=== PATIENT | male | born 1945 | race Caucasian/White ===

== ENCOUNTER → 2023-05-27 08:47 | Outpatient (REF) | payer MEDICARE, SELFPAY | LOC: RAD 08:47 | PROVIDERS: ATTENDING PHYSICIAN Physician Assistant; FAMILY PHYSICIAN Internal Medicine | DX: I72.3 Aneurysm of iliac artery (principal); I77.811 Abdominal aortic ectasia | CPT/HCPCS: 76770 ==

== ENCOUNTER → 2023-11-24 09:56 | Outpatient (REF) | payer MEDICARE, SELFPAY | LOC: RAD 09:56 | PROVIDERS: ATTENDING PHYSICIAN Surgery Vascular Surgery; FAMILY PHYSICIAN Internal Medicine | DX: I72.3 Aneurysm of iliac artery (principal); I73.9 Peripheral vascular disease, unspecified | CPT/HCPCS: 93922; 93925; 93978 ==

== ENCOUNTER → 2024-02-16 06:45 | Outpatient (REF) | payer MEDICARE, SELFPAY ==
[2024-02-16] MEDS: LEXISCAN 0.4 MG IV (09:15)
== END ==
LOC: RCS 06:45
PROVIDERS: ATTENDING PHYSICIAN Internal Medicine Cardiovascular Disease; FAMILY PHYSICIAN Internal Medicine
DX: I25.10 Atherosclerotic heart disease of native coronary artery without angina pectoris (principal)
CPT/HCPCS: 78452; 93017; A9500; J2785

== ENCOUNTER → 2024-03-31 10:58 | Outpatient (REF) | payer MEDICARE, SELFPAY ==
[2024-03-31 12:39] LABS: % Basophils 1.3 % (0-2); % Eosinophils 0.7 % (0-6); % Immature Granulocytes 0.4 % (0-0.5); % Lymphocytes 20.5 % (20.5-51.1); % Monocytes 8.1 % (1.7-9.3); Absolute Basophils 0.1 10^3/uL (0-0.2); Absolute Eosinophils 0.1 10^3/uL (0-0.7); Absolute Lymphocytes 1.5 10^3/uL (1.2-3.4); Absolute Monocytes 0.6 10^3/uL (0.1-0.6); Absolute Neutrophils 4.9 10^3/uL (1.4-6.5); Hematocrit 43.5 % (39.0-52.0); Hemoglobin 14.4 g/dL (13.0-18.0); Mean Corp Hgb Conc. 33.1 g/dL (33.0-37.0); Mean Corpuscular Hgb 29.8 pg (27.0-31.0); Mean Corpuscular Volume 90.1 fL (80.0-94.0); Nucleated Red Blood Cells % 0 % (-); Platelet Count 338 10^3/uL (130-400); Red Blood Cell Count 4.83 10^6/uL (4.70-6.10); Red Cell Dist. Width 12.6 % (11.5-14.5); White Blood Cell Count 7.2 10^3/uL (4.8-10.8)
[2024-03-31 13:36] LABS: ALT (SGPT) 27 U/L (0-50); AST (SGOT) 31 U/L (17-59); Albumin 4.5 g/dl (3.5-5.0); Alkaline Phosphatase 95 U/L (38-126); Blood Urea Nitrogen 14 mg/dl (9-20); Calcium 9.3 mg/dl (8.4-10.2); Carbon Dioxide 27 mmol/L (22-30); Chloride 102 mmol/L (98-107); Glucose 171 mg/dl (70-99); HDL Cholesterol 55 mg/dl; LDL Cholesterol, Calculated 42 mg/dl; Potassium 4.9 mmol/L (3.5-5.1); Sodium 140 mmol/L (135-145); Total Bilirubin 0.9 mg/dl (0.2-1.3); Total Cholesterol 123 mg/dl (50-199); Total Protein 7.4 g/dl (6.3-8.2); Triglyceride 134 mg/dl (10-149); Very Low Density Lipoprotein 26 mg/dl (0-30); eGFR > 60.00
[2024-03-31 14:03] LABS: PSA, Total - Screen 2.19 ng/ml (0.0-4.0)
[2024-03-31 14:23] LABS: Glycohemoglobin (HgbA1c) 7.9 % (4.0-5.6)
== END ==
LOC: REG 10:58
PROVIDERS: ATTENDING PHYSICIAN Internal Medicine Cardiovascular Disease; PRIMARYCARE PHYSICIAN Internal Medicine
DX: I25.10 Atherosclerotic heart disease of native coronary artery without angina pectoris (principal); E11.8 Type 2 diabetes mellitus with unspecified complications; N40.1 Benign prostatic hyperplasia with lower urinary tract symptoms; R35.0 Frequency of micturition; Z12.5 Encounter for screening for malignant neoplasm of prostate
CPT/HCPCS: 36415; 80053; 80061; 83036; 85025; G0103

== ENCOUNTER 2024-05-24 21:27 | Inpatient (IN) | payer MEDICARE, SELFPAY ==
[2024-05-24 15:34] VITALS: BP 182/84
--- NOTE | 2024-05-24 15:41 | ED.GENMED ---
ED Provider Triage
<Brian Lynch PA-C - Last Filed: 05/24/24 15:42>
-
Patient seen by provider in Triage?: Seen in Triage
Attestation: A medical screening examination has been initiated by a qualified medical provider. Based on the assessment performed at this time, it has been determined that an emergent medical condition may exist and the patient has been informed
that further medical evaluation and possible additional diagnostic testing may be needed.
HPI: 71-year-old male presents to the emergency department after a syncopal versus weakness episode. He states he was in his kitchen when he suddenly felt his legs get weak and he fell to the ground. He is not clear whether he lost consciousness.
Denies a head strike. Currently feels like his legs are weak and is having a hard time walking. Denies any upper extremity weakness.
GENERAL: Alert , in no apparent distress
EYE: No visual abnormalities.
NECK: Trachea midline
ENT: No visible abnormalities.
LUNGS: No acute respiratory distress
NEUROLOGICAL: Alert and oriented
SKIN: Skin intact. No visible changes.
MUSCULOSKELETAL: Moving extremities normally
PSYCH: Normal and appropriate interaction.
This is a medical evaluation conducted in person to initiate diagnostic evaluation and provide initial therapeutics. Please see further documentation by the treating clinician.
History of Present Illness
<Brian Lynch PA-C - Last Filed: 05/24/24 15:42>
General
Chief Complaint: Fainting/Passed Out
Time Seen by Provider: 05/24/24 18:00
<Nirav Landin DO - Last Filed: 05/24/24 19:47>
General
Source: patient
Exam Limitations: none
History of Present Illness
History of Present Illness:
See MDM
Past History
<Brian Lynch PA-C - Last Filed: 05/24/24 15:42>
Past History
ED Past Medical History: HTN, Hypercholesterolemia, NIDDM and NC
ED Past Surgical History: Appendectomy and Orthopedic
Social History
Tobacco: Non-smoker
Alcohol: Occasional
Personal:
Employment: Retired
Family History
Family History: Diabetes; Negative Early CAD
Phy Exam
<Nirav Landin, - Last Filed: 05/24/24 19:47>
Physical Exam
Physical Exam:
See MDM
Course
<Brian Lynch PA-C - Last Filed: 05/24/24 15:42>
Orders/Labs/Results
Orders:
Orders
05/24/24 15:26
EKG [Electrocardiogram (*1)] Urgent
Reason for Study: Syncope
EKG- Treatment ONCE
05/24/24 15:41
Complete Blood Count/With Diff Urgent
Comprehensive Metabolic Panel Urgent
05/24/24 16:35
COVID-19 Antigen Urgent
Source: Nasal Swab
INF RAPID [Influenza A+B Rapid Molecular] Urgent
KIRSTEN Source: Nasal Swab
Specimen Description:
05/24/24 18:08
0.9% Sodium Chloride 1000 ml [Nss] 1,000 ml IV BOLUS
Acetaminophen [Tylenol] 1,000 mg PO NOW STA
05/24/24 18:09
CT Head W/o Iv Contrast Urgent
Comment:
Reason For Exam: fall, head injury
05/24/24 18:11
Oseltamivir Phosphate [Tamiflu] 75 mg PO NOW STA
Abnormal Lab Results
05/24/24
15:41
RBC 4.41 L 10^6/uL
(4.70-6.10)
Hct 38.9 L %
(39.0-52.0)
MPV 11.0 H fL
(7.4-10.4)
Absolute Neuts (auto) 7.4 H 10^3/uL
(1.4-6.5)
Absolute Lymphs (auto) 0.5 L 10^3/uL
(1.2-3.4)
Neutrophils % 87.5 H %
(42.2-75.2)
Lymphocytes % 5.3 L %
(20.5-51.1)
Glucose 185 H mg/dl
(70-99)
05/24/24 15:41
05/24/24 15:41
Vital Signs
Initial and Last Documented VS:
Initial Vital Signs
Temp Pulse Resp BP Pulse Ox
98.2 F 82 20 182/84 97
05/24/24 15:34 05/24/24 15:34 05/24/24 15:34 05/24/24 15:34 05/24/24 15:34
Last Documented Vital Signs
Temp Pulse Resp BP Pulse Ox
102.9 F H 80 29 147/74 98
05/24/24 17:42 05/24/24 18:45 05/24/24 18:45 05/24/24 18:12 05/24/24 18:45
<Nirav Landin, DO - Last Filed: 05/24/24 19:47>
Orders/Labs/Results
Orders:
Orders
05/24/24 15:26
EKG [Electrocardiogram (*1)] Urgent
Reason for Study: Syncope
EKG- Treatment ONCE
05/24/24 15:41
Complete Blood Count/With Diff Urgent
Comprehensive Metabolic Panel Urgent
05/24/24 16:35
COVID-19 Antigen Urgent
Source: Nasal Swab
INF RAPID [Influenza A+B Rapid Molecular] Urgent
KIRSTEN Source: Nasal Swab
Specimen Description:
05/24/24 18:08
0.9% Sodium Chloride 1000 ml [Nss] 1,000 ml IV BOLUS
Acetaminophen [Tylenol] 1,000 mg PO NOW STA
05/24/24 18:09
CT Head W/o Iv Contrast Urgent
Comment:
Reason For Exam: fall, head injury
05/24/24 18:11
Oseltamivir Phosphate [Tamiflu] 75 mg PO NOW STA
Abnormal Lab Results
05/24/24
15:41
RBC 4.41 L 10^6/uL
(4.70-6.10)
Hct 38.9 L %
(39.0-52.0)
MPV 11.0 H fL
(7.4-10.4)
Absolute Neuts (auto) 7.4 H 10^3/uL
(1.4-6.5)
Absolute Lymphs (auto) 0.5 L 10^3/uL
(1.2-3.4)
Neutrophils % 87.5 H %
(42.2-75.2)
Lymphocytes % 5.3 L %
(20.5-51.1)
Glucose 185 H mg/dl
(70-99)
05/24/24 15:41
05/24/24 15:41
Vital Signs
Initial and Last Documented VS:
Initial Vital Signs
Temp Pulse Resp BP Pulse Ox
98.2 F 82 20 182/84 97
05/24/24 15:34 05/24/24 15:34 05/24/24 15:34 05/24/24 15:34 05/24/24 15:34
Last Documented Vital Signs
Temp Pulse Resp BP Pulse Ox
102.9 F H 80 29 147/74 98
05/24/24 17:42 05/24/24 18:45 05/24/24 18:45 05/24/24 18:12 05/24/24 18:45
<Nirav Landin, DO - Last Filed: 05/24/24 19:47>
MDM/Problems Addressed
Differential Diagnosis Includes:
HPI and MDM Narrative:
79-year-old male presenting with syncope. Patient has been feeling weak and fatigued for the past 2 days. He recently returned from a trip where he was visiting his grandchild. His grandchild had the flu. Patient complains of mild cough. He
passed out trying to get up from the toilet today. On exam patient is very weak. He is clinically dry. Will give IV fluids will start Tamiflu. Given the head injury, will obtain CT head
Physical exam
General: Weak and fatigued
HEENT: protecting airway. Dry mucous membranes,
Neck: appears supple
CV: No evidence of cyanosis. Regular rate and rhythm
Resp: No accessory muscle use. Lungs clear
Abd: Non-distended
Extremities: No deformities
Neuro: alert
Psych: Normal affect
Skin: Warm
Problems Addressed including Acute and Chronic Conditions affecting care:
1. Syncope
Acuity: acute
Prognosis: stable
Details: Likely in the setting of dehydration and fever
2. Influenza
Acuity: acute
Prognosis: stable
Details: Will start Tamiflu
3. Dehydration
Acuity: acute
Prognosis: stable
Details: Will provide IV fluids
Updates
CT head negative. Patient stating he is too weak to go home. He lives at home with his . His states that she cannot care for him in this state. Will admit for IV fluids
Differential Diagnosis (but not limited to): Syncope, orthostasis, flu illness
Testing considered: Chest x-ray but lungs are clear
Drug therapy (if applicable): OTC meds, please see d/c instruction regarding Rx drugs
Amount and/or Complexity of Data Reviewed
Clinical info obtained from: Patient
External data reviewed: N/A
Labs I independently reviewed (but not limited to): Hyperglycemia, influenza positive
Radiology: The CT scan was personally and independently reviewed. In addition, official CT report reviewed.
Pulse Ox: not hypoxic
EKG independently reviewed: Sinus rhythm, left axis, no STEMI
Charter Boat Operator: Sinus rhythm
Critical Care: N/A
Risk of Complication:
Social Determinants of health: Good social support
Discussed with other providers: Hospitalist
Escalation of Care includes Admit/Obs: Given the profound weakness, will admit for fluids
Occasional wrong word or 'sound a like' substitutions may have occurred due to the inherent limitations of voice recognition software. Read the chart carefully and recognize, using context, where substitutions have occurred.
<Nirav Landin DO - Last Filed: 05/24/24 19:47>
*Critical Care Note
Total Time (30-74mins, 75-104mins- exclusive of procedures): Not Applicable
ED Attending Note
<Brian Lynch PA-C - Last Filed: 05/24/24 15:42>
-
Portions of this chart may have been created with voice recognition software.� Occasional wrong word or��sound alike� substitutions may have occurred due to the inherent limitations of voice recognition software.
Discharge Plan
Departure
Patient Disposition: Admit
Date of Disposition: 05/24/24
Time of Disposition: 19:46
Admit to: Med/Surg
Presentation/result/management discussed w/ accepting /: Hospitalist
Discharge Problem:
Acute dehydration, Influenza A
Prescriptions:
No Action
metformin 500 MG tablet
1,000 mg PO BID@0800,1700
atorvastatin 80 MG tablet
80 mg PO QPM
carvedilol 6.25 MG tablet
6.25 mg PO BID
ezetimibe 10 MG tablet
10 mg PO DAILY@1200
pantoprazole 40 MG tablet,delayed release (DR/EC)
40 mg PO DAILY Qty: 60 0RF
aspirin 81 MG tablet,chewable
81 mg PO DAILY
guaifenesin [Mucus Relief ER] 600 mg Tablet Extended Release 12hr
600 mg PO Q12 Qty: 30 0RF
amlodipine 2.5 mg Tablet
2.5 mg PO DAILY
Referrals:
Saturnino Phillips MD [Family Provider] -
Interventions
Interventions:
*Risk Screen - Suicide Last Done: 05/24/24 15:34
*General Assessment Last Done: 05/24/24 15:34
*Neglect/Abuse Screening Last Done: 05/24/24 15:34
ED- Fall Risk Assessment Last Done: 05/24/24 18:20
ED- Cardiac Assessment Last Done: 05/24/24 18:20
ED- Neurological Assessment Last Done: 05/24/24 18:20
Discharge Date and Time
Print Language: LAO
[2024-05-24 16:15] LABS: % Basophils 0.7 % (0-2); % Immature Granulocytes 0.2 % (0-0.5); % Lymphocytes 5.3 % (20.5-51.1); % Monocytes 6.3 % (1.7-9.3); % Neutrophils 87.5 % (42.2-75.2); Absolute Basophils 0.1 10^3/uL (0-0.2); Absolute Lymphocytes 0.5 10^3/uL (1.2-3.4); Absolute Monocytes 0.5 10^3/uL (0.1-0.6); Absolute Neutrophils 7.4 10^3/uL (1.4-6.5); Hematocrit 38.9 % (39.0-52.0); Hemoglobin 13.4 g/dL (13.0-18.0); Mean Corp Hgb Conc. 34.4 g/dL (33.0-37.0); Mean Corpuscular Hgb 30.4 pg (27.0-31.0); Mean Corpuscular Volume 88.2 fL (80.0-94.0); Nucleated Red Blood Cells % 0 % (-); Platelet Count 210 10^3/uL (130-400); Red Blood Cell Count 4.41 10^6/uL (4.70-6.10); Red Cell Dist. Width 13.1 % (11.5-14.5); White Blood Cell Count 8.5 10^3/uL (4.8-10.8)
[2024-05-24 16:27] LABS: ALT (SGPT) 30 U/L (0-50); AST (SGOT) 37 U/L (17-59); Albumin 4.6 g/dl (3.5-5.0); Alkaline Phosphatase 94 U/L (38-126); Blood Urea Nitrogen 20 mg/dl (9-20); Calcium 9.3 mg/dl (8.4-10.2); Carbon Dioxide 23 mmol/L (22-30); Chloride 101 mmol/L (98-107); Glucose 185 mg/dl (70-99); Potassium 4.1 mmol/L (3.5-5.1); Sodium 135 mmol/L (135-145); Total Bilirubin 0.9 mg/dl (0.2-1.3); eGFR > 60.00
[2024-05-24 17:00] LABS: COVID-19 Antigen Negative (Negative)
[2024-05-24 18:12] VITALS: BP 147/74
[2024-05-24] MEDS: TYLENOL 1000 MG PO (18:37)
[2024-05-24] MEDS: TAMIFLU 75 MG PO (18:37)
[2024-05-24] MEDS: NSS 1000 IV ×2 (18:37→22:53)
[2024-05-24 20:00] VITALS: BP 131/62
--- NOTE | 2024-05-24 20:01 | HPS.HSE ---
Family Physician
-
Family Physician: Saturnino Phillips
Chief Complaint
-
Weakness, fall, fever
History of Present Illness
79-year-old male from home where he lives with his due to profound weakness with fall to kitchen floor. The patient was unsure whether he lost consciousness he denies any head injury he reports his legs feel weak and he is having a hard time
walking. He reports they were in [facility] visiting their daughter and grandchildren when his grandson H4 became sick with the flu on Thursday. The patient reports he drove home 4 hours on Thursday then yesterday started with a dry cough
body aches, neck pain, weakness in his legs. He has no nuchal rigidity on ex Yesterday he felt weak but was doing well until today when he had Profound weakness causing a fall to the kitchen floor. He was noted to be febrile 102.9F in the ER and
influenza A positive. He has past medical history of hypertension, HLD, DM2, CAD/inferior wall STEMI status post RCA stent proximal 10/18/2021, known right iliac aneurysm and abdominal aortic aneurysm followed by vascular surgery as outpatient,
Medical History
Past Medical History
Past Medical History: Reports Other
Additional Past Medical History:
known right iliac aneurysm and abdominal aortic aneurysm followed by vascular surgery as outpatient
DM2
CAD
NSTEMI 10/18/2021 status post proximal RCA stent
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
HTN
HLD
Past Surgical History: Reports Other
Additional Past Surgical History:
NSTEMI 10/18/2021 status post proximal RCA stent
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
Right knee replacement
Appendectomy
Social History
Tobacco: Non-smoker
Alcohol: None
Drug: None
Personal:
Living: With Family ()
Employment: Retired
Family History
Family History: Not pertinent
Allergies / Home Medications
Allergies reflects when Allergies were last updated in [employer].
Home Medications with original date entered in [employer]
Allergy/Medication List:
Allergies
Allergy/AdvReac Type Severity Reaction Status Date / Time
levofloxacin [From Levaquin] Allergy Unknown Verified 05/24/24 15:38
Home Medications
metformin 500 mg tablet 1,000 mg PO BID@0800,1700 Diabetes 07/17/16
atorvastatin 80 mg tablet 80 mg PO QPM High cholesterol 09/25/20
carvedilol 6.25 mg tablet 6.25 mg PO BID Blood pressure 09/25/20
ezetimibe 10 mg tablet 10 mg PO DAILY@1200 High cholesterol 09/25/20
pantoprazole 40 mg tablet,delayed release 40 mg PO DAILY #60 tabs 09/27/20
aspirin 81 mg chewable tablet 81 mg PO DAILY Blood clot prevention/tx 10/19/21
guaifenesin 600 mg tablet, extended release 12 hr (Mucus Relief ER) 600 mg PO Q12 Cough #30 tabs 10/19/21
amlodipine 2.5 mg tablet 2.5 mg PO DAILY 05/24/24
Review of Systems
-
History Source: Patient and Family ( at bedside)
A 12 point ROS was completed and negative except as noted: Yes
Constitutional: Reports Fever, Fatigue and Chills
EENT: Reports Other (Muscular neck pain); Denies Sore Throat, Mouth Pain or Runny Nose
Respiratory: Reports Cough (Nonproductive); Denies Hemoptysis or Trouble Breathing
Cardiac: Denies Chest Pain, Diaphoresis, Palpitations or Syncope
Abdomen/GI: Denies Abdominal Pain, Nausea, Vomiting, Diarrhea, Constipated, Bloody Stools or Black Stools
: Denies Dysuria, Frequency, Flank Pain, Incontinence, Difficulty Voiding or Urgency
Musculoskeletal: Reports Other (Myalgias); Denies Joint Pain or Edema
Skin: Denies Itching or Rash
Neurological: Reports Weakness (Lower legs); Denies Dizzy or Headache
Endocrine: Reports No Symptoms
Hematologic/Lymphatic: Reports No Symptoms
Psych: Reports Calm
Physical Exam
Vital Signs
Vital Signs
Temp Pulse Resp BP Pulse Ox
102.9 F H 80 29 147/74 98
05/24/24 17:42 05/24/24 18:45 05/24/24 18:45 05/24/24 18:12 05/24/24 18:45
Physical Exam
General: Conversant, Fever and Chills; No Pain
HEENT: NormoCephalic, Anicteric, Moist mucous membranes, PERRLA, [place] Conjunctivae, No Ptosis and Other (Bilateral trapezius tenderness no nuchal rigidity no vertebral tenderness)
Respiratory: Clear; No Wheezes, Rales or Rhonchi
Cardiac: S1/S2 and Regular Rhythm; No Murmur, Rub, Gallop or Peripheral Edema
Breast: Deferred by me
GI: Soft, Non Tender, Non Distended, Normal Bowel Sounds and No Hepatosplenomegaly
Rectal: Deferred by Provider
Genito-urinary: Deferred by me
Musculoskeletal: No Clubbing, No Cyanosis and No Edema
Skin: Warm and Dry; No Rash or Jaundice
Neuro: AO x 3, No Motor Deficits (While in bed), Nonfocal/grossly intact, Cranial Nerves Intact and No Sensory Deficits; No Slurred Speech, Facial Droop, Tremors or Sedated
Psych: Calm
Laboratory Results
-
05/24/24 15:41
05/24/24 15:41
Laboratory Results
Total Bilirubin 0.9 mg/dl (0.2-1.3) 05/24/24 15:41
AST 37 U/L (17-59) 05/24/24 15:41
ALT 30 U/L (0-50) 05/24/24 15:41
Alkaline Phosphatase 94 U/L (38-126) 05/24/24 15:41
Data Reviewed
-
Lab Data: Labs Reviewed by me
Impression/Plan
-
Impression/plan:
Observation MedSurg
#Fall/Weakness secondary to influenza A positive
Influenza A positive, temp 102.9 F, HR 80, 147/74, WBC 8.5
-Flu precautions
-IV NSS 1 L given in ER continue IV NSS 80 cc an hour
-Tylenol 1000 mg given in ER continue Tylenol as needed for fever/pain
-Tamiflu 75 mg twice daily x 5 days
-Consult PT/OT/case management
- CXR pending on admission
CT head: No acute intracranial pathology.
Minimal periventricular small vessel ischemic disease slightly progressed.
Mild atrophy
#CAD/inferior wall CO with RCA stent 10/18/2021
#Lexiscan nuclear stress test 05/22/2022 showing fixed inferior defect ejection fraction 60% no evidence of ischemia
-Continue aspirin 81 mg daily, carvedilol 6.25 mg twice daily, Zetia 10 mg, atorvastatin 80 mg every afternoon daily at noon
-Follows with [facility]
2D echo 05/15/2022: EF 60%, basal inferior hypokinesis, normal LVSF, normal right heart with top normal PASP 32 mmHg
EKG: NSR 78 bpm, QTc 392 MS improved from October 2021
#HTN�benign
BP 147/74
-Continue amlodipine 2.5 mg daily with hold parameters
#DM 2
Accu-Cheks with SSI, check HgbA1c
Hold metformin 1000 mg twice daily
#GERD
-Continue Protonix 40 mg daily
DVT prophylaxis
Subcu Lovenox
Full code
--- NOTE | 2024-05-24 20:03 | W.PN.UPDATE ---
Update Note
Progress Note Update
Patient seen in conjunction with MACHINE TURNER. I agree with the findings and physical. As well as the assessment and plan.
Briefly, this is a 79-year-old with past medical history of cyk-kxatmdr-bduzqkezi diabetes, hypertension, hyperlipidemia, CAD status post stent, GERD presenting to the emergency department after suffering a fall at home/collapse. Patient was
visiting family members over the weekend and was exposed to a grandson who was diagnosed with influenza and was sick at that time. On Thursday the patient himself got sick with weakness. He was not eating as well. He tried to manage at home. Today
when he got up to get around he got very weak and collapsed to the floor. Did not hit his head. He could not get up on his own so he was brought to the emergency department for evaluation.
He denied any focal neurological deficits.
In the emergency department he was febrile to 102.9, blood pressure 147/74 with a pulse of 80 satting 93 to 98% on room air. ECG shows a normal sinus rhythm at a rate of [address] or T wave changes. CBC was unremarkable electrolytes
BUN/creatinine were stable. CT of the head shows no bleed or any other acute abnormalities. His influenza test was positive. COVID was negative. No urine at this time. Chest x-ray pending.
Patient was too weak to return home.
Admit to MedSurg observation
Within window to start Tamiflu
Supportive care with IV fluids antipyretics.
If no infiltrates, no abx
continue management of CAD/DM II and htn per home regimen
DVT PPX w/ lovenox sq
Code status - full code
[2024-05-24 21:00] VITALS: BP 121/67
[2024-05-24 21:14] VITALS: BP 121/67
[2024-05-24 22:17] VITALS: BP 138/71; BMI 27.3
--- NOTE | 2024-05-25 03:34 | PTCARENOTE ---
late entry 2229: pt admitted to 2129, placed on enhanced precautions. oriented to room, call walden and POC. IV NSS infusing @80cc/hr. pt inst to call for assistance to get OOB to BR, pt verb understanding
[2024-05-25 07:28] VITALS: BP 148/75
[2024-05-25 07:31] LABS: Glucose - Point of Care 127 mg/dl (70-99)
[2024-05-25 07:50] LABS: % Basophils 0.8 % (0-2); % Immature Granulocytes 0.3 % (0-0.5); % Lymphocytes 14.5 % (20.5-51.1); % Neutrophils 74.4 % (42.2-75.2); Absolute Basophils 0.1 10^3/uL (0-0.2); Absolute Lymphocytes 0.9 10^3/uL (1.2-3.4); Absolute Monocytes 0.6 10^3/uL (0.1-0.6); Absolute Neutrophils 4.5 10^3/uL (1.4-6.5); Hematocrit 35.7 % (39.0-52.0); Hemoglobin 12.3 g/dL (13.0-18.0); Mean Corp Hgb Conc. 34.5 g/dL (33.0-37.0); Mean Corpuscular Hgb 30.8 pg (27.0-31.0); Mean Corpuscular Volume 89.5 fL (80.0-94.0); Mean Platelet Volume 11.3 fL (7.4-10.4); Nucleated Red Blood Cells % 0 % (-); Platelet Count 187 10^3/uL (130-400); Red Blood Cell Count 3.99 10^6/uL (4.70-6.10); Red Cell Dist. Width 13.3 % (11.5-14.5); White Blood Cell Count 6.1 10^3/uL (4.8-10.8)
[2024-05-25 08:28] LABS: ALT (SGPT) 29 U/L (0-50); AST (SGOT) 41 U/L (17-59); Alkaline Phosphatase 67 U/L (38-126); Blood Urea Nitrogen 14 mg/dl (9-20); Calcium 8.3 mg/dl (8.4-10.2); Carbon Dioxide 23 mmol/L (22-30); Chloride 103 mmol/L (98-107); Estimated Creatinine Clearance 87 ml/min; Glucose 137 mg/dl (70-99); Potassium 3.9 mmol/L (3.5-5.1); Sodium 136 mmol/L (135-145); Total Bilirubin 0.8 mg/dl (0.2-1.3); Total Protein 6.7 g/dl (6.3-8.2); eGFR > 60.00
--- NOTE | 2024-05-25 08:32 | W.PN.HOSP.TC ---
Today's Communication/Plan
-
doxy
PT/OT and d/c based on assessment
Assessment / Plan
Assessment / Plan
79yo M with PMHX of HTN, CAD s/p PCI, HLD, DM and GERD, AAA, iliac aneurism came after feeling profoundly weak to the point that he could not hold himself on his feet, when was trying to get outside to put the garbage out. On the next day after
admission feeling better, able to move feet and has no complains of paresthesia. Found acute Influenza A. Not hypoxic and without pneumonia on chest XR
A/P:
#Ambulatory disfunction 2/2 acute Influenza A with bronchitis, cannot r/o superimposed bacterial
started tamiflu
DOxy
PT/OT
#DM type 2 with neuropathy
Insulin SS, DM diet, accuchecks
#CAD, stable
#HLD
#Essential HTN
cont home meds
DVT ppx lovenox
Full code
I have spent at least 58min reviewing chart, test results, communication with consultants and direct patient care
Anticipated Discharge: Within 24 hours
Subjective/Interval History
-
Date of Service: May 25, 2024
Objective Data
-
Labs:
Laboratory Results
05/25/24
06:48
WBC 6.1
Hgb 12.3 L
Hct 35.7 L
Plt Count 187
Sodium 136
Potassium 3.9
Chloride 103
Carbon Dioxide 23
BUN 14
Creatinine 0.7
Glucose 137 H
Calcium 8.3 L
Total Bilirubin 0.8
AST 41
ALT 29
Alkaline Phosphatase 67
Vital Signs:
Vital Signs
Temp Pulse Resp BP Pulse Ox
98.9 F 60 16 148/75 95
05/25/24 07:28 05/25/24 07:28 05/25/24 07:28 05/25/24 07:28 05/25/24 07:28
I&O
05/24/24 05/25/24 05/26/24
06:59 06:59 06:59
Intake Total 1380 / 1380
Balance 1380 / 1380
Review of Systems
-
History Source: Patient
Constitutional: Reports Fatigue
Physical Exam
-
General: No Apparent Distress
HEENT: Normocephalic
Respiratory: Clear to Auscultation
Neuro: Awake, Alert, Oriented, AO x 3 and No Motor Deficits
Psych: Calm
[2024-05-25] MEDS: MUCINEX 600 MG PO (08:38)
[2024-05-25] MEDS: PROTONIX 40 MG PO (08:38)
[2024-05-25] MEDS: TAMIFLU 75 MG PO (08:38)
[2024-05-25] MEDS: NORVASC 2.5 MG PO (08:39)
[2024-05-25] MEDS: VIBRAMYCIN 100 MG PO (08:39)
[2024-05-25] MEDS: COREG 6.25 MG PO (08:39)
[2024-05-25 09:27] LABS: Glycohemoglobin (HgbA1c) 7.9 % (4.0-5.6)
[2024-05-25 11:38] LABS: Glucose - Point of Care 150 mg/dl (70-99)
[2024-05-25 11:47] VITALS: BP 130/74; PULSE 58; O2SAT 97
[2024-05-25] MEDS: ZETIA 10 MG PO (11:49)
[2024-05-25] MEDS: LOW STRENGTH ASPIRIN 81 MG PO (11:49)
--- NOTE | 2024-05-25 11:52 | PTOTSP ---
Pt is feeeling much better and eager to go home. He is independent with bed mobility, transfers, and ambulation without an assistive device with steady gait. No acute PT needs were identified. PT will sign off.
--- NOTE | 2024-05-25 12:08 | CM ---
IMM explained & signed.
Met with patient & .
PT eval no needs
PLAN; Home, no needs
to transport
--- NOTE | 2024-05-25 12:10 | CM ---
IA completed.
Lives at home in multistory , 2 steps to enter, flight to second floor
PLOF: Independent, no device
Denies DME
Denies insecurities
PCP: Saturnino Henderson
Pharmacy: [facility], [id number], [place]
PLAN: Home, no needs
to transport
--- NOTE | 2024-05-25 12:37 | W.DCSUMMARY ---
Discharge Summary
Discharge Data
Date of Admission: 05/24/24
Date of Discharge: 05/25/24
-
Pending Results: No
Hospital Course
79yo M with PMHX of HTN, CAD s/p PCI, HLD, DM and GERD, AAA, iliac aneurism came after feeling profoundly weak to the point that he could not hold himself on his feet, when was trying to get outside to put the garbage out. On the next day after
admission feeling better, able to move feet and has no complains of paresthesia. Found acute Influenza A. Not hypoxic and without pneumonia on chest XR. PT/OT assessed patient and he was ambulating without difficulty. Medically stable to be d/c home
to continue his recovery.
I have spent at least 58min reviewing chart, test results, communication with consultants and direct patient care
Patient was managed for:
#Ambulatory disfunction 2/2 acute Influenza A with bronchitis, cannot r/o superimposed bacterial
#DM type 2 with neuropathy
#CAD, stable
#HLD
#Essential HTN
Discharge Plan
-
Patient Disposition: Home (Routine Discharge)
Discharge Diagnosis/Procedures: Influenza
Diet: 2 Gram Sodium
Activity: As tolerated
Referrals:
Saturnino Phillips MD [Family Provider] - in less than 1 week
Prescriptions:
New
doxycycline hyclate 100 mg Capsule
100 mg PO Q12 Qty: 10 0RF
oseltamivir 75 mg Capsule
75 mg PO BID Qty: 8 0RF
Continued
metformin 500 MG tablet
1,000 mg PO BID@0800,1700
atorvastatin 80 MG tablet
80 mg PO QPM
carvedilol 6.25 MG tablet
6.25 mg PO BID
ezetimibe 10 MG tablet
10 mg PO DAILY@1200
pantoprazole 40 MG tablet,delayed release (DR/EC)
40 mg PO DAILY Qty: 60 0RF
aspirin 81 MG tablet,chewable
81 mg PO DAILY
guaifenesin [Mucus Relief ER] 600 mg Tablet Extended Release 12hr
600 mg PO Q12 Qty: 30 0RF
amlodipine 2.5 mg Tablet
2.5 mg PO DAILY
Discharge Orders:
Discharge Patient (As Directed); Ordered 05/25/24
Ordered By: Misbah Rea
Discharge Date and Time
Print Language: [place]IZ[place]
[2024-05-25 13:18] VITALS: BP 125/66
== END 2024-05-25 14:09 | disposition home or self-care (01) | DRG 195 ==
LOC: 2 NORTH 21:27
PROVIDERS: Clinical Nurse Specialist Family Health; Physician Assistant; ADMITTING PHYSICIAN Internal Medicine; ATTENDING PHYSICIAN Internal Medicine; EMERGENCY PHYSICIAN Student in an Organized Health Care Education/Training Program; FAMILY PHYSICIAN Internal Medicine
DX: J10.1 Influenza due to other identified influenza virus with other respiratory manifestations (principal); I25.10 Atherosclerotic heart disease of native coronary artery without angina pectoris; I10 Essential (primary) hypertension; E11.9 Type 2 diabetes mellitus without complications; E78.00 Pure hypercholesterolemia, unspecified; E86.0 Dehydration; I71.40 Abdominal aortic aneurysm, without rupture, unspecified; I72.3 Aneurysm of iliac artery; I25.2 Old myocardial infarction; S09.90XA Unspecified injury of head, initial encounter; W18.39XA Other fall on same level, initial encounter; Z79.82 Long term (current) use of aspirin; Z79.84 Long term (current) use of oral hypoglycemic drugs; Z95.5 Presence of coronary angioplasty implant and graft; Z96.651 Presence of right artificial knee joint; Z20.822 Contact with and (suspected) exposure to COVID-19; Z88.1 Allergy status to other antibiotic agents; Z79.899 Other long term (current) drug therapy
CPT/HCPCS: 70450; 71046; 80053; 82962; 83036; 85025; 87502; 87811; 93005; 96360; 97162; 97165; 99285

== ENCOUNTER 2024-06-28 17:32 | Emergency (ER) | payer MEDICARE, SELFPAY ==
[2024-06-28 17:42] VITALS: BP 134/74
[2024-06-28 18:01] LABS: % Basophils 0.8 % (0-2); % Eosinophils 0.7 % (0-6); % Immature Granulocytes 0.3 % (0-0.5); % Lymphocytes 18.7 % (20.5-51.1); % Neutrophils 70.5 % (42.2-75.2); Absolute Basophils 0.1 10^3/uL (0-0.2); Absolute Eosinophils 0.1 10^3/uL (0-0.7); Absolute Lymphocytes 1.4 10^3/uL (1.2-3.4); Absolute Monocytes 0.7 10^3/uL (0.1-0.6); Absolute Neutrophils 5.1 10^3/uL (1.4-6.5); Hematocrit 38.3 % (39.0-52.0); Hemoglobin 13.1 g/dL (13.0-18.0); Mean Corp Hgb Conc. 34.2 g/dL (33.0-37.0); Mean Corpuscular Hgb 30.8 pg (27.0-31.0); Mean Corpuscular Volume 89.9 fL (80.0-94.0); Mean Platelet Volume 10.2 fL (7.4-10.4); Nucleated Red Blood Cells % 0 % (-); Platelet Count 241 10^3/uL (130-400); Red Blood Cell Count 4.26 10^6/uL (4.70-6.10); White Blood Cell Count 7.2 10^3/uL (4.8-10.8)
[2024-06-28 18:17] VITALS: BP 151/82
[2024-06-28 18:17] LABS: ALT (SGPT) 23 U/L (0-50); AST (SGOT) 26 U/L (17-59); Albumin 4.5 g/dl (3.5-5.0); Alkaline Phosphatase 85 U/L (38-126); Blood Urea Nitrogen 22 mg/dl (9-20); Calcium 9.4 mg/dl (8.4-10.2); Carbon Dioxide 24 mmol/L (22-30); Chloride 104 mmol/L (98-107); Glucose 136 mg/dl (70-99); Potassium 4.3 mmol/L (3.5-5.1); Sodium 137 mmol/L (135-145); Total Bilirubin 1.1 mg/dl (0.2-1.3); Total Protein 6.9 g/dl (6.3-8.2); eGFR > 60.00
[2024-06-28 18:19] VITALS: BMI 25.1
[2024-06-28 18:19] LABS: COVID-19 Antigen Negative (Negative)
[2024-06-28 18:26] LABS: NT-proBNP 38.3 pg/ml; Troponin I < 0.012 ng/ml
--- NOTE | 2024-06-28 19:00 | ED.GENMED ---
History of Present Illness
General
Chief Complaint: Chest Problem
Source: patient
Exam Limitations: none
Time Seen by Provider: 06/28/24 18:56
History of Present Illness
History of Present Illness:
See MDM
Past History
Past History
ED Past Medical History: HTN, Hypercholesterolemia, NIDDM and [place]
ED Past Surgical History: Appendectomy and Orthopedic
Social History
Tobacco: Non-smoker
Alcohol: Occasional
Personal:
Employment: Retired
Family History
Family History: Diabetes; Negative Early CAD
Phy Exam
Physical Exam
Physical Exam:
See MDM
Course
Orders/Labs/Results
Orders:
Orders
06/28/24 17:33
Electrocardiogram (*1) Urgent
Reason for Study: Chest Pain
EKG- Treatment ONCE
06/28/24 17:45
CR Chest - 2 Views Urgent
Comment:
Reason For Exam: cough
06/28/24 17:51
COVID-19 Antigen Urgent
Source: Nasal Swab
Complete Blood Count/With Diff Urgent
Comprehensive Metabolic Panel Urgent
Pro-BNP [NT-proBNP] Urgent
Troponin I Urgent
Influenza A+B Rapid Molecular Urgent
KIRSTEN Source: Nasal Swab
Specimen Description:
06/28/24 19:00
Dexamethasone Pf [Decadron] 10 mg PO NOW STA
Ipratropium/Albuterol Sulfate [Duoneb] 3 ml INH R NOW STA
Abnormal Lab Results
06/28/24
17:51
RBC 4.26 L 10^6/uL
(4.70-6.10)
Hct 38.3 L %
(39.0-52.0)
Absolute Monos (auto) 0.7 H 10^3/uL
(0.1-0.6)
Lymphocytes % 18.7 L %
(20.5-51.1)
BUN 22 H mg/dl
(9-20)
Glucose 136 H mg/dl
(70-99)
06/28/24 17:51
06/28/24 17:51
Vital Signs
Initial and Last Documented VS:
Initial Vital Signs
Temp Pulse Resp BP Pulse Ox
97.6 F 62 24 134/74 99
06/28/24 17:42 06/28/24 17:42 06/28/24 17:42 06/28/24 17:42 06/28/24 17:42
Last Documented Vital Signs
Temp Pulse Resp BP Pulse Ox
97.5 F 60 20 124/91 95
06/28/24 19:30 06/28/24 19:30 06/28/24 19:30 06/28/24 19:30 06/28/24 19:30
MDM/Problems Addressed
Differential Diagnosis Includes:
HPI and MDM Narrative:
79-year-old male presenting with shortness of breath, cough and wheeze. This has been going on for the past day or so. Patient states he was recently admitted for the flu a few weeks ago. At that time, he states he was on doxycycline. He denies
leg pain or swelling or fevers. Blood work was done prior to my evaluation. Troponin and BNP both within normal limits. EKG is nonischemic. On my exam, patient does have expiratory wheezing throughout. We discussed that he has an inflammatory
response to his recent flu illness. Will obtain chest x-ray and start DuoNeb and Decadron
Physical exam
General: Well appearing and non-toxic
HEENT: protecting airway
Neck: appears supple
CV: No evidence of cyanosis. Regular rate and rhythm
Resp: No accessory muscle use. Expiratory wheezing throughout
Abd: Non-distended
Extremities: No deformities. No leg edema or tenderness
Neuro: alert
Psych: Normal affect
Skin: Intact
Problems Addressed including Acute and Chronic Conditions affecting care:
1. Reactive airway disease
Acuity: acute
Prognosis: stable
Details: Likely in setting of recent viral illness. Will give DuoNeb and Decadron. Chest x-ray pending
Updates
Chest x-ray clear. On reassessment, patient feeling much better. Will start steroid taper and albuterol as needed
Differential Diagnosis (but not limited to): Reactive airway disease, bronchitis, pneumonia
Testing considered: D-dimer but he is neither tachycardic nor hypoxic
Drug therapy (if applicable): OTC meds, please see d/c instruction regarding Rx drugs
Amount and/or Complexity of Data Reviewed
Clinical info obtained from: Patient
External data reviewed: N/A
Labs I independently reviewed (but not limited to): Troponin and BNP normal
Radiology: X-ray independently reviewed: Chest x-ray clear
Pulse Ox: not hypoxic
EKG independently reviewed: Sinus rhythm, left axis, no STEMI
Internal Control Specialist: N/A
Critical Care: N/A
Risk of Complication:
Social Determinants of health: Good social support
Discussed with other providers: N/A
Escalation of Care includes Admit/Obs: After being observed in the Emergency Department, pt stable for discharge.
Occasional wrong word or 'sound a like' substitutions may have occurred due to the inherent limitations of voice recognition software. Read the chart carefully and recognize, using context, where substitutions have occurred.
*Critical Care Note
Total Time (30-74mins, 75-104mins- exclusive of procedures): Not Applicable
ED Attending Note
-
Portions of this chart may have been created with voice recognition software.� Occasional wrong word or��sound alike� substitutions may have occurred due to the inherent limitations of voice recognition software.
Discharge Plan
Departure
Patient Disposition: Home (Routine Discharge)
Date of Disposition: 06/28/24
Time of Disposition: 20:20
Patient with high blood pressure during this ER visit?: No
Discharge Problem:
RAD (reactive airway disease) with wheezing
Prescriptions:
New
prednisone 10 mg tablet
See Rx Instructions .ROUTE .COMPLEX Qty: 45 0RF
Rx Instructions:
5 tabs day 1-3, 4 tabs day 4-6, 3 tabs day 7-9, 2 tabs day 10-12, 1 tab day 13-15
albuterol sulfate 90 mcg/actuation HFA aerosol inhaler
2 puff inhalation Q6H PRN (Reason: shortness of breath or wheezing) Qty: 8.5 0RF
No Action
metformin 500 MG tablet
500 mg PO BID@0800,1700
atorvastatin 80 MG tablet
80 mg PO HS
ezetimibe 10 MG tablet
10 mg PO QPM
aspirin 81 MG tablet,chewable
81 mg PO DAILY
amlodipine 5 mg Tablet
5 mg PO QPM
acetaminophen 500 mg Tablet
1,000 mg PO DAILYPRN PRN (Reason: mild pain)
carvedilol 3.125 mg Tablet
3.125 mg PO BID
tamsulosin 0.4 mg Capsule
0.4 mg PO HS
bismuth subsalicylate [Pepto-Bismol] 262 mg/15 mL Suspension
524 mg PO DAILYPRN PRN (Reason: indigestion)
valsartan 40 mg Tablet
40 mg PO QPM
sodium chloride 0.65 % Aerosol,[place]
1 spray INTRANASAL R DAILYPRN PRN (Reason: dry sinuses)
Balance Of Nature Fruits
3 cap PO DAILY
Balance Of Nature Veggies
3 cap PO DAILY
doxycycline hyclate 100 mg Capsule
100 mg PO Q12 Qty: 10 0RF
oseltamivir 75 mg Capsule
75 mg PO BID Qty: 9 0RF
Referrals:
Saturnino Phillips MD [Family Provider] -
Activity Restrictions/Additional Instructions:
Please return for any worsening symptoms.
You may return at any time if you have further concerns.
Please follow up with your doctor at the first available appointment, preferably this week.
Thank you for choosing [facility].
Interventions
Interventions:
*Risk Screen - Suicide Last Done: 06/28/24 18:19
*General Assessment Last Done: 06/28/24 18:19
*Neglect/Abuse Screening Last Done: 06/28/24 18:19
*ED- Fall Risk Assessment Last Done: 06/28/24 19:13
*ED COVID-19 Vaccine History Last Done: 06/28/24 18:19
ED- Cardiac Assessment Last Done: 06/28/24 18:19
ED- Pulmonary Assessment Last Done: 06/28/24 18:19
Discharge Date and Time
Print Language: TURKISH
[2024-06-28] MEDS: DECADRON 10 MG PO (19:12)
[2024-06-28] MEDS: DUONEB 3 ML INH (19:12)
[2024-06-28 19:26] VITALS: BP 124/91
[2024-06-28 19:30] VITALS: BP 124/91
== END 2024-06-28 20:31 | disposition home or self-care (01) ==
LOC: EMR 17:32
PROVIDERS: Emergency Medicine; EMERGENCY PHYSICIAN Student in an Organized Health Care Education/Training Program; FAMILY PHYSICIAN Internal Medicine
DX: J45.909 Unspecified asthma, uncomplicated (principal); I10 Essential (primary) hypertension; Z11.52 Encounter for screening for COVID-19
CPT/HCPCS: 99285; 94640; 71046; 80053; 83880; 84484; 85025; 87502; 87811; 93005

== ENCOUNTER 2024-08-12 12:46 | Emergency (ER) | payer MEDICARE, SELFPAY ==
[2024-08-12 12:51] VITALS: BP 155/81
[2024-08-12 13:22] LABS: % Basophils 0.8 % (0-2); % Eosinophils 0.3 % (0-6); % Immature Granulocytes 0.3 % (0-0.5); % Lymphocytes 17.9 % (20.5-51.1); % Monocytes 7.3 % (1.7-9.3); % Neutrophils 73.4 % (42.2-75.2); Absolute Basophils 0.1 10^3/uL (0-0.2); Absolute Lymphocytes 1.6 10^3/uL (1.2-3.4); Absolute Monocytes 0.6 10^3/uL (0.1-0.6); Absolute Neutrophils 6.3 10^3/uL (1.4-6.5); Hematocrit 37.6 % (39.0-52.0); Hemoglobin 13.1 g/dL (13.0-18.0); Mean Corp Hgb Conc. 34.8 g/dL (33.0-37.0); Mean Corpuscular Hgb 30.8 pg (27.0-31.0); Mean Corpuscular Volume 88.5 fL (80.0-94.0); Mean Platelet Volume 10.4 fL (7.4-10.4); Nucleated Red Blood Cells % 0 % (-); Platelet Count 241 10^3/uL (130-400); Red Blood Cell Count 4.25 10^6/uL (4.70-6.10); Red Cell Dist. Width 13.2 % (11.5-14.5); White Blood Cell Count 8.6 10^3/uL (4.8-10.8)
[2024-08-12 13:31] LABS: ALT (SGPT) 21 U/L (0-50); AST (SGOT) 23 U/L (17-59); Albumin 3.8 g/dl (3.5-5.0); Alkaline Phosphatase 94 U/L (38-126); Blood Urea Nitrogen 15 mg/dl (9-20); Carbon Dioxide 22 mmol/L (22-30); Chloride 107 mmol/L (98-107); Glucose 215 mg/dl (70-99); Potassium 4.3 mmol/L (3.5-5.1); Sodium 137 mmol/L (135-145); Total Bilirubin 0.7 mg/dl (0.2-1.3); Total Protein 6.3 g/dl (6.3-8.2); eGFR > 60.00
[2024-08-12 14:34] VITALS: BP 140/74
[2024-08-12 14:38] VITALS: BMI 27.9
[2024-08-12] MEDS: ANTIVERT 25 MG PO (14:57)
[2024-08-12] MEDS: NSS 1000 IV (14:57)
[2024-08-12 15:00] VITALS: BP 129/68
--- NOTE | 2024-08-12 15:41 | ED.GENMED ---
History of Present Illness
General
Chief Complaint: Dizziness
Time Seen by Provider: 08/12/24 13:57
History of Present Illness
History of Present Illness:
79-year-old male presents the emergency department for evaluation of dizziness for the past several days. He felt well yesterday but had recurrent symptoms this morning making it challenging to walk. He was able to walk with assistance of a cane.
Describes it as 'my equilibrium is off'. No associated fever, chills, sweats, neck pain, chest pain, or shortness of breath. No recent viral URI
Past History
Past History
ED Past Medical History: HTN, Hypercholesterolemia, NIDDM and [place]
ED Past Surgical History: Appendectomy and Orthopedic
Social History
Tobacco: Non-smoker
Alcohol: Occasional
Personal:
Employment: Retired
Family History
Family History: Diabetes; Negative Early CAD
Review of Systems
Review of Systems
Allergies reviewed?: Yes
All Other Systems: ROS reviewed and negative except as documented in HPI and ROS
Phy Exam
Physical Exam
Physical Exam:
GEN: Well appearing, NAD, WDWN
HEENT: Oral mucosa moist, no scleral icterus, no nasal congestion
Cardiac: Regular rate
Lung: No respiratory distress, no tachypnea
MSK: No gross deformity or injuries
Skin: Good color, no pallor or jaundice, no rashes
Neuro: AO x3; CN II-XII grossly intact. BUE strength 5/5 in all green, sensation intact and symmetric. BLE strength 5/5 in all green, sensation intact and symmetric, unable to provoke nystagmus with head movement and body position change
Psych: Calm, cooperative
Course
Orders/Labs/Results
Orders:
Orders
08/12/24 12:55
Electrocardiogram (*1) Urgent
Reason for Study: Vertigo / Dizzy
CT Head W/o Iv Contrast Urgent
Comment:
Reason For Exam: dizziness, head pressure
EKG- Treatment ONCE
08/12/24 13:05
Complete Blood Count/With Diff Urgent
Comprehensive Metabolic Panel Urgent
08/12/24 14:37
0.9% Sodium Chloride 1000 ml [Nss] 1,000 ml IV BOLUS
Meclizine [Antivert] 25 mg PO NOW STA
Abnormal Lab Results
08/12/24
13:05
RBC 4.25 L 10^6/uL
(4.70-6.10)
Hct 37.6 L %
(39.0-52.0)
Lymphocytes % 17.9 L %
(20.5-51.1)
Glucose 215 H mg/dl
(70-99)
08/12/24 13:05
08/12/24 13:05
Vital Signs
Initial and Last Documented VS:
Initial Vital Signs
Temp Pulse Resp BP Pulse Ox
97.6 F 66 16 155/81 97
08/12/24 12:51 08/12/24 12:51 08/12/24 12:51 08/12/24 12:51 08/12/24 12:51
Last Documented Vital Signs
Temp Pulse Resp BP Pulse Ox
97.6 F 60 18 129/68 96
08/12/24 12:51 08/12/24 15:30 08/12/24 15:30 08/12/24 15:00 08/12/24 15:30
MDM/Problems Addressed
MDM/Problems Addressed:
Clinical picture is consistent with benign vertigo, given IV fluids and meclizine with dramatic improvement in symptoms and was able to ambulate without difficulty. He has no focal neurologic deficits and CT of the head is reassuring. Suitable for
discharge home and outpatient management
*Critical Care Note
Total Time (30-74mins, 75-104mins- exclusive of procedures): Not Applicable
ED Attending Note
-
Portions of this chart may have been created with voice recognition software.� Occasional wrong word or��sound alike� substitutions may have occurred due to the inherent limitations of voice recognition software.
Discharge Plan
Departure
Patient Disposition: Home (Routine Discharge)
Date of Disposition: 08/12/24
Time of Disposition: 16:09
Patient with high blood pressure during this ER visit?: Yes
Discharge Problem:
Vertigo
Instructions: Vertigo (a Type of Dizziness) (DC)
Prescriptions:
New
meclizine 25 mg tablet
25 mg PO TID PRN (Reason: vertigo) Qty: 20 0RF
No Action
metformin 500 MG tablet
500 mg PO BID@0800,1700
atorvastatin 80 MG tablet
80 mg PO HS
ezetimibe 10 MG tablet
10 mg PO QPM
aspirin 81 MG tablet,chewable
81 mg PO DAILY
amlodipine 5 mg Tablet
5 mg PO QPM
acetaminophen 500 mg Tablet
1,000 mg PO DAILYPRN PRN (Reason: mild pain)
carvedilol 3.125 mg Tablet
3.125 mg PO BID
tamsulosin 0.4 mg Capsule
0.4 mg PO HS
bismuth subsalicylate [Pepto-Bismol] 262 mg/15 mL Suspension
524 mg PO DAILYPRN PRN (Reason: indigestion)
valsartan 40 mg Tablet
40 mg PO QPM
sodium chloride 0.65 % Aerosol,[place]
1 spray INTRANASAL R DAILYPRN PRN (Reason: dry sinuses)
Balance Of Nature Fruits
3 cap PO DAILY
Balance Of Nature Veggies
3 cap PO DAILY
doxycycline hyclate 100 mg Capsule
100 mg PO Q12 Qty: 10 0RF
oseltamivir 75 mg Capsule
75 mg PO BID Qty: 9 0RF
prednisone 10 mg tablet
See Rx Instructions .ROUTE .COMPLEX Qty: 45 0RF
Rx Instructions:
5 tabs day 1-3, 4 tabs day 4-6, 3 tabs day 7-9, 2 tabs day 10-12, 1 tab day 13-15
albuterol sulfate 90 mcg/actuation HFA aerosol inhaler
2 puff inhalation Q6H PRN (Reason: shortness of breath or wheezing) Qty: 8.5 0RF
Referrals:
Saturnino Phillips MD [Family Provider] -
Interventions
Interventions:
*Risk Screen - Suicide Last Done: 08/12/24 14:04
*General Assessment Last Done: 08/12/24 12:51
*Neglect/Abuse Screening Last Done: 08/12/24 14:04
*ED- Fall Risk Assessment Last Done: 08/12/24 14:04
*ED COVID-19 Vaccine History Last Done: 08/12/24 12:51
ED- Neurological Assessment Last Done: 08/12/24 15:41
Discharge Date and Time
Print Language: [id number]
[2024-08-12 15:48] VITALS: BP 147/125
[2024-08-12 16:00] VITALS: BP 144/72
== END 2024-08-12 16:37 | disposition home or self-care (01) ==
LOC: EMR 12:46
PROVIDERS: Emergency Medicine; EMERGENCY PHYSICIAN Student in an Organized Health Care Education/Training Program; FAMILY PHYSICIAN Internal Medicine
DX: R42 Dizziness and giddiness (principal); I10 Essential (primary) hypertension
CPT/HCPCS: 99285; 96360; 70450; 80053; 85025; 93005

== ENCOUNTER → 2024-08-26 12:28 | Outpatient (REF) | payer MEDICARE, SELFPAY ==
[2024-08-26 13:21] LABS: % Basophils 1.1 % (0-2); % Eosinophils 0.6 % (0-6); % Immature Granulocytes 0.1 % (0-0.5); % Lymphocytes 22.2 % (20.5-51.1); % Monocytes 7.2 % (1.7-9.3); % Neutrophils 68.8 % (42.2-75.2); Absolute Basophils 0.1 10^3/uL (0-0.2); Absolute Lymphocytes 1.6 10^3/uL (1.2-3.4); Absolute Monocytes 0.5 10^3/uL (0.1-0.6); Absolute Neutrophils 4.8 10^3/uL (1.4-6.5); Hematocrit 39.9 % (39.0-52.0); Hemoglobin 13.5 g/dL (13.0-18.0); Mean Corp Hgb Conc. 33.8 g/dL (33.0-37.0); Mean Corpuscular Hgb 30.1 pg (27.0-31.0); Mean Corpuscular Volume 89.1 fL (80.0-94.0); Mean Platelet Volume 10.7 fL (7.4-10.4); Nucleated Red Blood Cells % 0 % (-); Platelet Count 252 10^3/uL (130-400); Red Blood Cell Count 4.48 10^6/uL (4.70-6.10)
[2024-08-26 14:30] LABS: Glycohemoglobin (HgbA1c) 8.3 % (4.0-5.6)
[2024-08-26 16:12] LABS: ALT (SGPT) 24 U/L (0-50); AST (SGOT) 27 U/L (17-59); Albumin 4.4 g/dl (3.5-5.0); Alkaline Phosphatase 89 U/L (38-126); Blood Urea Nitrogen 17 mg/dl (9-20); Calcium 9.4 mg/dl (8.4-10.2); Carbon Dioxide 25 mmol/L (22-30); Chloride 105 mmol/L (98-107); Glucose 149 mg/dl (70-99); HDL Cholesterol 45 mg/dl; LDL Cholesterol, Calculated 37 mg/dl; Potassium 4.4 mmol/L (3.5-5.1); Sodium 139 mmol/L (135-145); Total Cholesterol 104 mg/dl (50-199); Total Protein 6.8 g/dl (6.3-8.2); Triglyceride 111 mg/dl (10-149); Very Low Density Lipoprotein 22 mg/dl (0-30); eGFR > 60.00
== END ==
LOC: REG 12:28
PROVIDERS: ATTENDING PHYSICIAN Internal Medicine
DX: E78.00 Pure hypercholesterolemia, unspecified (principal); E11.8 Type 2 diabetes mellitus with unspecified complications
CPT/HCPCS: 36415; 80053; 80061; 83036; 85025

== ENCOUNTER → 2024-11-29 11:01 | Outpatient (REF) | payer MEDICARE, SELFPAY ==
[2024-11-29 11:55] LABS: Hematocrit 38.3 % (39.0-52.0); Hemoglobin 13.2 g/dL (13.0-18.0); Mean Corp Hgb Conc. 34.5 g/dL (33.0-37.0); Mean Corpuscular Volume 88.5 fL (80.0-94.0); Nucleated Red Blood Cells % 0 % (-); Platelet Count 240 10^3/uL (130-400); Red Cell Dist. Width 12.3 % (11.5-14.5)
[2024-11-29 12:32] LABS: ALT (SGPT) 20 U/L (0-50); AST (SGOT) 23 U/L (17-59); Albumin 4.1 g/dl (3.5-5.0); Alkaline Phosphatase 78 U/L (38-126); Blood Urea Nitrogen 16 mg/dl (9-20); Calcium 9.3 mg/dl (8.4-10.2); Carbon Dioxide 23 mmol/L (22-30); Chloride 105 mmol/L (98-107); Glucose 132 mg/dl (70-99); HDL Cholesterol 50 mg/dl; LDL Cholesterol, Calculated 40 mg/dl; Potassium 4.7 mmol/L (3.5-5.1); Sodium 136 mmol/L (135-145); Total Protein 6.5 g/dl (6.3-8.2); Very Low Density Lipoprotein 14 mg/dl (0-30); eGFR > 60.00
[2024-11-29 12:34] LABS: Microalbumin, Random Urine 2.2 mg/dl (0.6-1.7)
[2024-11-29 14:21] LABS: Glycohemoglobin (HgbA1c) 7.3 % (4.0-5.6)
[2024-11-29 14:47] LABS: Microalb - Urine Creatinine 152.900 mg/dl
== END ==
LOC: REG 11:01
PROVIDERS: ATTENDING PHYSICIAN Internal Medicine
DX: E78.00 Pure hypercholesterolemia, unspecified (principal); Z00.00 Encounter for general adult medical examination without abnormal findings; E11.9 Type 2 diabetes mellitus without complications; Z79.4 Long term (current) use of insulin
CPT/HCPCS: 36415; 80053; 80061; 82043; 82570; 83036; 85025

== ENCOUNTER → 2024-12-01 07:55 | Outpatient (REF) | payer MEDICARE, SELFPAY | LOC: RAD 07:55 | PROVIDERS: ATTENDING PHYSICIAN Registered Nurse; FAMILY PHYSICIAN Internal Medicine | DX: I72.3 Aneurysm of iliac artery (principal) | CPT/HCPCS: 93978 ==